=== PATIENT | male | born 2000 | race Caucasian/White ===

== ENCOUNTER 2021-08-28 11:15 | Emergency (ER) | payer OTHER, SELFPAY ==
[2021-08-28 11:29] VITALS: BP 178/71; PULSE 79; RESP 16; TEMP 37.2; O2SAT 98
--- NOTE | 2021-08-28 11:55 | ED.URI ---
HPI - URI/Sore Throat General Chief Complaint: Upper Respiratory Infection Stated Complaint: poss tonsilitis Source: patient and RN notes reviewed Mode of arrival: ambulatory History of Present Illness HPI Narrative: This is a 20-year-old male who presented to urgent care with complaints of throat discomfort and headache that occurred yesterday according to patient while he was swallowing he noticed a discomfort in his throat. The patient denies SOB, CP, palpitation, extremity numbness, lightheadedness, dizziness, constipation, diarrhea, chills, or fever. Related Data Home Medications Medication Instructions Recorded Confirmed No Home Medications 08/28/21 08/28/21 Allergies Allergy/AdvReac Type Severity Reaction Status Date / Time No Known Allergies Allergy Verified 08/28/21 11:33 Review of Systems Review of Systems: A 14 organ system Review of Systems was performed and pertinent positives included in the HPI, otherwise remaining ROS is negative. [facility] Family History Family History (Updated 08/28/21 @ 11:57 by LUZ MARINA Gayle) Other Family history non-contributory Exam Narrative: GENERAL: This is a well-nourished, well-developed patient, in no apparent distress. HEAD: normocephalic, atraumatic. EYES: PERRL. Sclera clear/white. Vision is grossly intact. EARS: External ears normal, auditory canals clear and without drainage, TMs normal without perforation. Hearing grossly intact. NOSE: External nose normal with no obvious nasal discharge, nares without redness, no rhinorrhea. THROAT: Mucous membranes moist, posterior pharynx edema with erythematous bilateral swollen tonsils NECK: Neck supple, non-tender without lymphadenopathy, masses or thyromegaly. CARDIOVASCULAR: Regular rate and rhythm without murmurs, gallops, or rubs. RESPIRATORY: Clear to auscultation. Breath sounds equal bilaterally. No wheezes, rales, or rhonchi. GASTROINTESTINAL: Abdomen soft, non-tender, nondistended. Bowel sounds are active. No hepato-splenomegaly, or palpable masses. No guarding. SKIN: warm, intact with no suspicious lesions or rash, good texture and turgor. NEURO: awake, alert, and oriented to person, place and time. There were no obvious focal neurologic abnormalities. Steady gait EXTREMITIES: Normal range of motion. No edema. No calf tenderness. Negative Homans sign bilaterally. BACK: Nontender without deformity or crepitance. No flank tenderness. Course Course Emergency Course: Patient will be treated for strep he will discharge home with Augmentin x10 days Vital Signs Vital signs: Vital Signs Temperature 99 F 08/28/21 11:29 Pulse Rate 79 08/28/21 11:29 Respiratory Rate 16 08/28/21 11:29 Blood Pressure 178/71 H 08/28/21 11:29 Pulse Oximetry 98 08/28/21 11:29 Temperature 99 F 08/28/21 11:29 Pulse Rate 79 08/28/21 11:29 Respiratory Rate 16 08/28/21 11:29 Blood Pressure 178/71 H 08/28/21 11:29 Pulse Oximetry 98 08/28/21 11:29 MDM - URI/Sore Throat Differential Diagnosis Differential diagnosis: Likely upper respiratory infection, otitis media, viral infection, bronchitis, pharyngitis and other (Strep) Lab Data Attestation: I reviewed the patient's lab results. Labs: Strep Screen Positive Group A Strep *(Reference Range: Negative)* Discharge Plan Discharge Clinical Impression: Strep pharyngitis Patient Disposition: Home, Self-Care Condition: Stable Instructions: Antibiotic Form, Strep Throat (ED) Additional Instructions: -Eat things that are easy to swallow, like tea or soup, or popsicles to suck on. -Oral rinses such as: Salt water gargles and/or may use topical anesthetic (eg. Chloraseptic spray) or lozenges to relieve dryness or throat pain. -Take tylenol and ibuprofen as needed for pain and fever as directed. -Frequent hand washing or hand sulfonation equipment operator is one of the best ways to prevent spread of infecti
== END 2021-08-28 11:58 | disposition home or self-care (01) ==
PROVIDERS: Emergency Provider Nurse Practitioner
DX: J02.0 Streptococcal pharyngitis (principal)
CPT/HCPCS: 87880; 99213; G0463

== ENCOUNTER 2021-09-17 11:50 | Emergency (ER) | payer OTHER, SELFPAY ==
[2021-09-17 12:02] VITALS: BP 188/100; PULSE 89; RESP 14; TEMP 37.2; O2SAT 98
--- NOTE | 2021-09-17 12:26 | ED.NAVMDI ---
HPI - Nausea/Vomiting/Diarrhea General Chief complaint: Nausea/Vomiting/Diarrhea Stated complaint: cough diarrhea nausea Time Seen by Provider: 09/17/21 12:20 Source: patient and RN notes reviewed Mode of arrival: ambulatory Limitations: no limitations History of Present Illness HPI Narrative: Jarrell is a 20-year-old male patient who ambulated into the [facility]. Patient states he has a 2-day history of nausea and vomiting diarrhea. Patient states he has not had any nausea or vomiting or diarrhea today. Patient states it was all yesterday. Patient states his employer made him go home until he could get tested for Covid. MD elicited complaint: nausea, vomiting and diarrhea Related Data Home Medications Medication Instructions Recorded Confirmed No Home Medications 08/28/21 09/17/21 Allergies Allergy/AdvReac Type Severity Reaction Status Date / Time No Known Allergies Allergy Verified 09/17/21 12:12 Review of Systems Review of Systems: CONSTITUTIONAL: Denies body aches, fever, chills, or sweats. EYES: Denies visual changes, redness, or discharge. ENT: Denies rhinorrhea, congestion, sore throat, or otalgia. CARDIOVASCULAR: Denies chest pain, palpitations, or edema. RESPIRATORY: Denies cough or dyspnea. GASTROINTESTINAL: Denies abdominal pain,+ nausea, +vomiting, + diarrhea. GENITOURINARY: Denies dysuria or hematuria. SKIN: Denies rash, itching, or wounds. MUSCULOSKELETAL: Denies back pain, joint pain, or myalgia. NEUROLOGIC: Denies headache, numbness, tingling, or weakness. PSYCH: Denies depression or anxiety. All systems reviewed & are unremarkable except as noted in HPI and below PMFSH Family History Family History Other Family history non-contributory Comments At time of signature, I have reviewed and agree with nursing past medical, surgical, social and family history unless otherwise noted. Please see nursing chart for further information. There is no relevant family history pertinent to the presenting complaint Exam Narrative: GENERAL: Well-appearing, well-nourished, and in no acute distress. HEAD: Normocephalic, atraumatic. EYES: EOMI. No redness or drainage. Conjunctivae normal. ENT: Mucous membranes pink and moist. Nares clear. No rhinorrhea. TMs normal bilaterally. Throat normal. Uvula midline. NECK: Normal AROM. Supple. No lymphadenopathy. CHEST: No respiratory distress. Clear to auscultation. ABDOMEN: Soft, nontender, nondistended, normal active bowel sounds. MUSCULOSKELETAL: No bony tenderness. EXTREMITIES: Normal range of motion. No edema. SKIN: Warm, dry, no rash. Capillary refill normal. Normal skin turgor. NEURO: No focal deficits. Alert and oriented x3. Gait steady. PSYCH: Normal affect. No signs of depression or anxiety. Course Course Emergency Course: Patient was examined. Normal exam noted. Rapid Covid versus PCR testing was explained to the patient. Patient was informed he does not meet criteria for rapid Covid test. However PCR will be sent out to the hospital we will get results in 24 to 48 hours. Vital Signs Vital signs: Vital Signs Temperature 37.2 C 09/17/21 12:02 Pulse Rate 89 09/17/21 12:02 Respiratory Rate 14 09/17/21 12:02 Blood Pressure 188/100 H 09/17/21 12:02 Pulse Oximetry 98 09/17/21 12:02 Temperature 37.2 C 09/17/21 12:02 Pulse Rate 89 09/17/21 12:02 Respiratory Rate 14 09/17/21 12:02 Blood Pressure 188/100 H 09/17/21 12:02 Pulse Oximetry 98 09/17/21 12:02 Reviewed. Pt has been instructed to follow up with his PCP regarding his elevated blood pressure today. MDM - Nausea/Vomiting/Diarrhea MDM Narrative Medical decision making narrative: Patient had a 2-day history of nausea, vomiting, diarrhea. Patient had 2 bouts of vomiting yesterday morning. Patient had diarrhea yesterday afternoon. Patient has had no episodes of nausea vomiting or diarrhea toda
[2021-09-18 14:05] LABS: SARS-CoV-2 RNA PCR Negative
== END 2021-09-17 12:41 | disposition home or self-care (01) ==
PROVIDERS: Emergency Provider Nurse Practitioner Family
DX: K52.9 Noninfective gastroenteritis and colitis, unspecified (principal); Z20.822 Contact with and (suspected) exposure to COVID-19
CPT/HCPCS: 99211; C9803; G0463; U0003; U0005

== ENCOUNTER 2021-09-24 10:05 | Emergency (ER) | payer OTHER, SELFPAY ==
[2021-09-24 10:11] VITALS: BP 157/99; PULSE 101; RESP 18; TEMP 37.6; O2SAT 99
--- NOTE | 2021-09-24 11:37 | ED.URI ---
HPI - URI/Sore Throat General Chief Complaint: Upper Respiratory Infection Stated Complaint: Sore Throat Source: patient and RN notes reviewed Mode of arrival: ambulatory History of Present Illness HPI Narrative: 20-year-old male presented for complaint of sore throat, pain with swallowing, increased fatigue for 3 days. He endorses he had been treated for strep pharyngitis the week before [place], and states he did not clean his marijuana paraphernalia and suspects he reinfected himself. He has been taking ibuprofen and eating popsicles without significant improvement in symptoms. He denies any other sick contacts. He is not vaccinated for Covid. He denies fever, chills, body aches, nausea, vomiting Related Data Home Medications Medication Instructions Recorded Confirmed No Home Medications 08/28/21 09/24/21 Allergies Allergy/AdvReac Type Severity Reaction Status Date / Time No Known Allergies Allergy Verified 09/24/21 10:28 Review of Systems Review of Systems: All systems reviewed & are unremarkable except as noted in HPI and below [facility] Family History Family History (Updated 09/24/21 @ 11:47 by Petra Underwood, ACCESSORIES REPAIRER) Other Family history non-contributory Exam Narrative: GENERAL: ill appearing, no acute distress. HEAD: Normocephalic, atraumatic. EYES: EOMI. No redness or drainage. Conjunctivae normal. ENT: Mucous membranes pink and moist. Nares clear. Edema, erythema, and tonsillar exudates NECK: Normal AROM. Supple. No lymphadenopathy. CHEST: No respiratory distress. Clear to auscultation. HEART: Regular rate and rhythm. No murmur appreciated. Normal peripheral pulses. ABDOMEN: Soft, nondistended MUSCULOSKELETAL: No bony tenderness. EXTREMITIES: Normal range of motion. No edema. SKIN: Warm, dry, no rash. Capillary refill normal. Normal skin turgor. NEURO: No focal deficits. Alert and oriented x3. Gait steady. PSYCH: Normal affect. No signs of depression or anxiety. Course Course Level of Care: Express Care Visit Vital Signs Vital signs: Vital Signs Temperature 99.6 F 09/24/21 10:11 Pulse Rate 101 H 09/24/21 10:11 Respiratory Rate 18 09/24/21 10:11 Blood Pressure 157/99 H 09/24/21 10:11 Pulse Oximetry 99 09/24/21 10:11 Temperature 99.6 F 09/24/21 10:11 Pulse Rate 101 H 09/24/21 10:11 Respiratory Rate 18 09/24/21 10:11 Blood Pressure 157/99 H 09/24/21 10:11 Pulse Oximetry 99 09/24/21 10:11 MDM - URI/Sore Throat MDM Narrative Medical decision making narrative: strep swab neg discharged with different abx and steroids based on hx, physical exam/ gestalt. Differential Diagnosis Differential diagnosis: Likely upper respiratory infection, viral infection and pharyngitis Lab Data Attestation: I reviewed the patient's lab results. Labs: Strep Screen Presumptive Negative *(Reference Range: Negative)* Discharge Plan Discharge Clinical Impression: Pharyngitis Patient Disposition: Home, Self-Care Condition: Stable Instructions: Antibiotic Form, Pharyngitis (ED) Additional Instructions: Gargle with warm salt water twice a day. Soft foods, cool liquids, warm tea with honey. Take antibiotics and steroid as directed. Clean all instruments and toothbrush Prescriptions: New clindamycin HCl 300 mg capsule 300 mg PO Q8H 10 Days Qty: 30 RF: 0 methylprednisolone [Medrol (Duong)] 4 mg tablets,dose pack See Rx Instructions .ROUTE .COMPLEX Qty: 21 RF: 0 No Action No Home Medications RF: 0 Follow-up/Referrals: PHYSICIAN,MECHANICAL COMMISSIONING ENGINEER [Primary Care Provider] - Time of Disposition: 11:45
== END 2021-09-24 11:45 | disposition home or self-care (01) ==
PROVIDERS: Emergency Provider Nurse Practitioner Family
DX: J02.9 Acute pharyngitis, unspecified (principal)
CPT/HCPCS: 87081; 87880; 99213; G0463